=== PATIENT | female | born 2000 | race Caucasian/White ===

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

== ENCOUNTER 2021-01-14 14:25 | Emergency (ER) | payer MEDICAID, OTHER ==
[2021-01-14] MEDS: Tetracaine HCl/PF 0.5% 4 ML Bottle EYELF ONE (15:15)
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
[2021-01-14 18:18] VITALS: BP 138/72; PULSE 82
== END 2021-01-14 15:21 | disposition home or self-care (01) ==
LOC: LL.ED 14:25
DX: S05.02XA Injury of conjunctiva and corneal abrasion without foreign body, left eye, initial encounter (principal); E66.9 Obesity, unspecified; Z68.1 Body mass index [BMI] 19.9 or less, adult; W22.8XXA Striking against or struck by other objects, initial encounter
CPT/HCPCS: 99283

== ENCOUNTER 2021-02-17 18:10 | Emergency (ER) | payer OTHER ==
[2021-02-17 18:23] VITALS: BP 147/87; PULSE 83
--- NOTE | 2021-02-17 19:35 | EDM.PDOC ---
ED HPI GENERAL MEDICAL PROBLEM - General Chief Complaint: Laceration Stated Complaint: LEFT THUMB LACERATION Time Seen by Provider: 02/17/21 18:42 Source of Information: Reports: Patient History Limitations: Reports: No Limitations - History of Present Illness INITIAL COMMENTS - FREE TEXT/NARRATIVE: Lacerated left hand trying to carve a pumpkin. Has small wound in webbing betwe en thumb and 2nd digit. No loss of function. No numbness. No other complaints. Tetanus is up to date. Left Finger-Thumb Pain Score (Numeric/FACES): 3 - Related Data Allergies Allergy/AdvReac Type Severity Reaction Status Date / Time No Known Allergies Allergy Verified 02/17/21 18:11 Home Meds: Home Meds . [No Known Home Meds] 02/17/21 [History] Past Medical History - Past Health History Medical/Surgical History: Denies Medical/Surgical History HEENT History: Reports: None Cardiovascular History: Reports: None, Other (See Below) Other Cardiovascular History: Patient does not know her cholesterol status Respiratory History: Reports: None Gastrointestinal History: Reports: None Genitourinary History: Reports: None CONCRETE ANALYST History: Denies: Dysfunctional Uterine Bleeding, Endometriosis, Fibroids, Other CONCRETE ANALYST History: Amenorrhea secondary to current Norplant therapy. Musculoskeletal History: Reports: None Neurological History: Reports: Headaches, Chronic Psychiatric History: Reports: None Endocrine/Metabolic History: Reports: Obesity/BMI 30+ Hematologic History: Reports: None Immunologic History: Reports: None Oncologic (Cancer) History: Reports: None Dermatologic History: Reports: None - Infectious Disease History Infectious Disease History: Reports: None - Past Surgical History Head Surgeries/Procedures: Reports: None HEENT Surgical History: Reports: Oral Surgery, Other (See Below) Other HEENT Surgeries/Procedures: Comfort teeth extraction 4 in August 2016 Cardiovascular Surgical History: Reports: None Respiratory Surgical History: Reports: None GI Surgical History: Reports: None Female Surgical History: Reports: Other (See Below) Other Female Surgeries/Procedures: Norplant placement in about March 2020. Endocrine Surgical History: Reports: None Neurological Surgical History: Reports: None Musculoskeletal Surgical History: Reports: None Oncologic Surgical History: Reports: None Dermatological Surgical History: Reports: None - Past Imaging History Past Imaging History: Reports: None Social & Family History - Family History Family Medical History: No Pertinent Family History - Caffeine Use Caffeine Use: Reports: Coffee - Sexual History Sexual History: Reports: None - Living Situation & Occupation Living situation: Reports: with Family Occupation: Student ED ROS GENERAL - Review of Systems Review Of Systems: See Below Musculoskeletal: Reports: Other (laceration left hand) Skin: Reports: Other (laceration left hand) Neurological: Reports: No Symptoms Psychiatric: Reports: No Symptoms ED EXAM, SKIN/RASH Exam: See Below Exam Limited By: No Limitations General Appearance: Alert, WD/WN, No Apparent Distress Eye Exam: Bilateral Eye: EOMI, PERRL Ears: Hearing Grossly Normal Nose: No: Nasal Deformity, Nasal Swelling, Nasal Drainage Throat/Mouth: Normal Lips, Normal Voice, No Airway Compromise Head: Atraumatic, Normocephalic Neck: Supple Respiratory/Chest: No Respiratory Distress Cardiovascular: Normal Peripheral Pulses Extremities: Normal Range of Motion, Normal Capillary Refill Neurological: Alert, Oriented, Normal Cognition, Normal Gait, No Motor/Sensory Deficits Psychiatric: Normal Affect, Normal Mood Skin: Warm, Other (laceration left hand between thumb and 2nd digit. ) ED SKIN PROCEDURES - Laceration/Wound Repair Left Hand Appearance: Subcutaneous, Muscle, Clean Distal NVT: Neuro & Vascular Intact, No Tendon Injury Anesthetic Type: Local Local Anesthesia - Lidocaine (Xylocaine): 1% Plain Local Anesthetic Volume: 2cc Skin Prep: Saline Exploration/Debridement/Repair: Wound Explored, In a Bloodless Field, Explored to Base Closed with: Sutures Lac/Wound length In cm: 1.5 Suture Size: 4-0 # of Sutures: 2 Suture Type: Nylon, Interrupted Sterile Dressing Applied: Nurse Tetanus Status Addressed: Yes Complications: No Course - Vital Signs Last Recorded V/S: Last Vital Signs Temp 37.3 C 02/17/21 18:22 Pulse 83 02/17/21 18:22 Resp 14 02/17/21 18:22 BP 147/87 H 02/17/21 18:22 Pulse Ox 100 02/17/21 18:22 - Orders/Labs/Meds Meds: Medications Discontinued Medications Generic Name Dose Route Start Last Admin Trade Name Freq PRN Reason Stop Dose Admin Bacitracin 1 dose 02/17/21 19:36 Bacitracin Oint 1 Gm U/D Packet TOP 02/17/21 19:37 ONETIME ONE Lidocaine HCl 5 ml 02/17/21 18:23 02/17/21 18:31 Lidocaine 1% 5 Ml Sdv INJECT 02/17/21 18:24 5 ml ONETIME ONE Administration - Re-Assessments/Exams Free Text/Narrative Re-Assessment/Exam: 02/17/21 19:47 Laceration repaired. Wound care reviewed. Follow up in one week for suture removal. Precautions reviewed prior to discharge. Departure - Departure Time of Disposition: 19:33 Disposition: Home, Self-Care 01 Condition: Good Clinical Impression: Laceration of hand Qualifiers: Encounter type: initial encounter Foreign body presence: without foreign body Laterality: left Qualified Code(s): S61.412A - Laceration without foreign body of left hand, initial encounter - Discharge Information *PRESCRIPTION DRUG MONITORING PROGRAM REVIEWED*: Not Applicable *COPY OF PRESCRIPTION DRUG MONITORING REPORT IN PATIENT TARAN: Not Applicable Instructions: Laceration Care, Adult, [id number] Forms: ED Department Discharge Additional Instructions: Keep area clean/dry and apply antibiotic ointment on area 2-3 times a day. Follow up if you have any problems such as signs of infection. Call our clinic to get a time slop to have the sutures removed next week on . Sepsis Event Note (ED) - Focused Exam Vital Signs: Vital Signs Temp Pulse Resp BP Pulse Ox 02/17/21 18:22 37.3 C 83 14 147/87 H 100
[2021-02-17] MEDS ORDERED: Bacitracin Oint 1 GM U/D Packet TOP ONE (19:36)
== END 2021-02-17 19:42 | disposition home or self-care (01) ==
LOC: LL.ED 18:10
DX: S61.412A Laceration without foreign body of left hand, initial encounter (principal); E66.9 Obesity, unspecified; Z68.36 Body mass index [BMI] 36.0-36.9, adult; W26.8XXA Contact with other sharp object(s), not elsewhere classified, initial encounter
CPT/HCPCS: 12001; 99282-25; 99283